=== PATIENT | female | born 1935 | race Caucasian/White ===

== ENCOUNTER → 2016-07-02 | Outpatient (CLI) | payer MEDICARE | END | disposition home or self-care (01) | LOC: CFH 13:31 | PROVIDERS: ATTEND Physician Assistant | DX: I83.891 Varicose veins of right lower extremity with other complications (principal) ==

== ENCOUNTER → 2020-02-18 | Outpatient (CLI) | payer MEDICARE ==
[~2020-02-18] MED LIST: ASCO60LO PO; CALC-694 PO; CARB1TAB2 PO; CARB1TAB43 PO; CEFD300C37 PO; CHOL200040 PO; FOLI0.8C PO; GLUC100020 PO; GLUC1TAB55 PO; LORA-445 PO; MAGN100P PO; OMEG1CAP34 PO; PANT40TA6 PO; RED600CA2 PO; REGADENOSON 0.4 MG/5 ML SYRINGE ONE; UBID1CAP43 PO
== END | disposition home or self-care (01) ==
LOC: CFH 08:20
PROVIDERS: ATTEND Internal Medicine
DX: R07.9 Chest pain, unspecified (principal)
CPT/HCPCS: 78452; 93017; A9502; J2785

== ENCOUNTER 2020-08-06 20:26 | Observation (INO) | payer MEDICARE ==
[~2020-08-06] VITALS: Ht 160 cm; Wt 64.5 kg
[~2020-08-06 20:26] MED LIST changes: +CARB-218 PO; -CARB1TAB2 PO; -REGADENOSON 0.4 MG/5 ML SYRINGE ONE
--- NOTE | 2020-08-06 20:30 | NUR ---
pt BIBA for chest pressure, pt was at home and had some pressure in her chest so pt took nitro x2 and it releived the pressure, pt also took 324 of ASA, pt had a negative stress test a month ago, pt was not complaining of nausea, chest pain or dizziness upon arrival, pt has a history of parkinsons, pt has bilateral edema that she states has been going on for a while now
--- NOTE | 2020-08-06 21:13 | NUR ---
pt laying in bed, a/ox4, pt not complaining of chest pain, SOB, or nausea, all needs in reach, call light in reach, NAD, side rails up with bed in low position and wheel locks engaged
[2020-08-06 21:21] LABS: BASOPHILS % (AUTO) 0 % (0-1); EOSINOPHILS % (AUTO) 0 % (1-7); LYMPHOCYTES % (AUTO) 12 % (22-44); MEAN CORPUSCULAR HEMOGLOBIN 27.8 pg (27.0-34.8); MEAN CORPUSCULAR HGB CONC 32.1 g/dL (32.4-35.8); MONOCYTES % (AUTO) 12 % (2-9); NEUTROPHILS % (AUTO) 76 % (42-75); PLATELET COUNT 251 x10^3/uL (130-400)
[2020-08-06 21:28] LABS: ALBUMIN 3.1 g/dL (3.4-5.0); ANION GAP 3 mmol/L (5-15); CALCIUM 9.3 mg/dL (8.5-10.1); CHLORIDE 109 mmol/L (98-107)
[2020-08-06 21:33] LABS: ALANINE AMINOTRANSFERASE 11 U/L (12-78); ALKALINE PHOSPHATASE 76 U/L (45-117); BILIRUBIN,TOTAL 0.3 mg/dL (0.2-1.0); CREATININE 1.28 mg/dL (0.55-1.02); TOTAL PROTEIN 6.4 g/dL (6.4-8.2); TROPONIN I < 0.015 ng/mL (0.000-0.045)
--- NOTE | 2020-08-06 21:43 | NUR ---
pts heart rate jumped up to 200 on the monitor, pt stated she felt fine, this RN was in the room at the time, repeat EKG was done and it was sinus because at the time EKG was being done pts heart rate was normal, MD was notified and went to bedside to assess pt, MD stated it might be from pts parkinsons, pt states she feels fine and has no symptoms to complain of
[2020-08-06] MEDS ORDERED: ACETAMINOPHEN 325 MG TABLET PO PRN (23:30)
[2020-08-06] MEDS ORDERED: DOCUSATE 100 MG CAPSULE PO PRN (23:30)
[2020-08-06] MEDS ORDERED: morphine SULFATE 10 MG/ML, 1ML IVPush PRN (23:30)
[2020-08-06] MEDS ORDERED: MELATONIN 5 MG TABLET PO PRN (23:30)
[2020-08-06] MEDS ORDERED: NITROGLYCERIN 0.4 MG BOTTLE (25 TABS) SL PRN (23:30)
[2020-08-07 00:16] VITALS: BP 166/88
[2020-08-07] MEDS: HEPARIN 5,000 UNITS/ML, 1ML SQ SCH ×3 (00:30→15:51)
[2020-08-07 03:11] LABS: BASOPHILS % (AUTO) 0 % (0-1); EOSINOPHILS % (AUTO) 1 % (1-7); LYMPHOCYTES % (AUTO) 18 % (22-44); MEAN CORPUSCULAR HGB CONC 32.2 g/dL (32.4-35.8); MEAN PLATELET VOLUME 8.8 fL (7.4-10.4); MONOCYTES % (AUTO) 9 % (2-9); NEUTROPHILS % (AUTO) 72 % (42-75); PLATELET COUNT 254 x10^3/uL (130-400); RED BLOOD COUNT 4.57 x10^6/uL (3.82-5.3); RED CELL DISTRIBUTION WIDTH 18.2 % (9.6-15.2)
[2020-08-07 03:20] LABS: ANION GAP 4 mmol/L (5-15); CALCIUM 9.1 mg/dL (8.5-10.1); CHLORIDE 111 mmol/L (98-107); CHOLESTEROL, TOTAL 214 mg/dL (140-239); CREATININE 1.03 mg/dL (0.55-1.02); TRIGLYCERIDES 60 mg/dL (50-200); VLDL CHOLESTEROL 12 mg/dL (0-25)
[2020-08-07 03:25] LABS: CHOL/HDL RATIO 2.4; HDL CHOL % 42 % (28-40); HDL CHOLESTEROL (DIRECT) 89 mg/dL (40-60); LDL CHOLESTEROL,CALCULATED 113 mg/dL (54-169); LDL/HDL RATIO 1.3 (0.5-3.0); TROPONIN I < 0.015 ng/mL (0.000-0.045)
[2020-08-07 06:31] VITALS: BP 164/89
[2020-08-07] MEDS ORDERED: PANT40TA6 PO (10:38)
[2020-08-07] MEDS ORDERED: MELA5TAB14 PO (10:38)
[2020-08-07] MEDS ORDERED: ACET325T26 PO (10:38)
[2020-08-07 10:54] LABS: TROPONIN I < 0.015 ng/mL (0.000-0.045)
[2020-08-07] MEDS ORDERED: SODIUM CHLORIDE 0.9%, 250ML IVBOLUS ONE (11:30)
[2020-08-07] MEDS ORDERED: OMNIPAQUE 350 MG/ML, 75ML BOTTLE ONE (13:19)
[2020-08-07 14:50] VITALS: BP 108/68
== END 2020-08-07 17:23 | disposition home or self-care (01) ==
LOC: ED 21:45 → EDIP 23:19 → INTOOBSV 23:19 → 5SO 08-07 00:12
PROVIDERS: ADMIT Internal Medicine; ATTEND Internal Medicine
DX: R07.89 Other chest pain (principal); N17.9 Acute kidney failure, unspecified; G20 Parkinson's disease; I35.1 Nonrheumatic aortic (valve) insufficiency; M85.80 Other specified disorders of bone density and structure, unspecified site; Z79.899 Other long term (current) drug therapy; Z85.3 Personal history of malignant neoplasm of breast; Z87.891 Personal history of nicotine dependence; Z90.12 Acquired absence of left breast and nipple
CPT/HCPCS: 36415; 71045; 71275; 72072; 80048; 80053; 80061; 83036; 83880; 84484; 85025; 85379; 93005; 93306; 93356; 96372; 99285; G0378; J1644; J7050; Q9967